=== PATIENT | male | born 1980 | race Caucasian/White ===

== ENCOUNTER 2018-08-22 12:08 | Emergency (ER) | payer OTHER ==
[2018-08-22] MEDS ORDERED: Fluorescein Opthalmic Strip ONE (12:31)
[2018-08-22] MEDS ORDERED: Proparacaine 0.5% Opth 15 ML BOT ONE (12:31)
[2018-08-22] MEDS ORDERED: Adacel (T-DAP) 0.5 ML SYRINGE ONE (13:19)
== END 2018-08-22 13:55 | disposition home or self-care (01) ==
LOC: ERS 12:08
DX: T15.02XA Foreign body in cornea, left eye, initial encounter (principal); W45.8XXA Other foreign body or object entering through skin, initial encounter
CPT/HCPCS: 65220; 90471; 90715